=== PATIENT | female | born 1935 | race Caucasian/White ===

== ENCOUNTER 2016-12-30 12:48 | Inpatient (IN) | payer OTHER ==
--- NOTE | 2016-12-30 13:36 | EDPHY ---
H & P Stated Complaint: dyspnea increasing over 2 days, 6 wks of illness. tisha munoz in [place] Time Seen by Provider: 12/30/16 13:27 - Personal History Current Tetanus/Diphtheria Vaccine: Yes Current Tetanus Diphtheria and Acellular Pertussis (TDAP): Yes - Medical/Surgical History Hx Asthma: Yes Hx Chronic Respiratory Disease: Yes Hx Diabetes: Yes Hx Cardiac Disease: Yes Hx Renal Disease: No Hx Cirrhosis: No Hx Alcoholism: No Hx HIV/AIDS: No Hx Splenectomy or Spleen Trauma: No Other PMH: psh:cardiac x2 bypass, hysterectomy, tonsels, appyt, dental. pmh: asthma, sleep apnea, htn, pre DM, - Social History Smoking Status: Never smoked Constitutional: Initial Vital Signs Temperature (C) 36.9 C 12/30/16 13:09 Heart Rate 61 12/30/16 13:09 Respiratory Rate 16 12/30/16 13:09 Blood Pressure 122/84 H 12/30/16 13:09 O2 Sat (%) 91 L 12/30/16 13:09 O2 Delivery Mode Nasal Cannula O2 (L/minute) 1 Allergies/Adverse Reactions: lisinopril Allergy (Verified 12/28/15 11:11) Penicillins Allergy (Verified 12/28/15 11:11) Home Medications: Medication Instructions Recorded Aspirin [Aspirin 81mg (OTC)] 162 mg PO HS 12/28/15 Atorvastatin Calcium [Lipitor] 20 mg PO HS 12/28/15 Cholecalciferol Vit D3 [Vitamin D] 1,000 units PO DAILY 12/28/15 Cyanocobalamin [Vitamin B12] 1,000 mcg PO DAILY 12/28/15 Diltiazem Cd [Cardizem ER Q24hr] 120 mg PO DAILY 12/28/15 Escitalopram Oxalate [Lexapro] 20 mg PO DAILY 12/28/15 Fluticasone/Salmeter 100/50Mcg 1 puffs IH BID 12/28/15 [Advair] Furosemide [Lasix] 20 mg PO DAILY 12/28/15 Gabapentin [Neurontin] 800 mg PO HS 12/28/15 Nitroglycerin [Nitrostat 0.4 mg 0.4 mg SL Q5M PRN 12/28/15 (RX)] Ranitidine HCl [Zantac] 300 mg PO BID 06/24/16 Ranolazine [Ranexa] 500 mg PO BID 12/28/15 Medical Decision Making - Diagnostics Imaging Results: Imaging Impressions Chest X-Ray 12/30/16 13:36 Impression: 1. Findings consistent with airways disease. Basilar opacities could reflect atelectasis or pneumonia. 2. Query low-grade congestive heart failure without tenzin pulmonary edema. Imaging: I viewed and interpreted images myself ED Course/Re-evaluation: CHIEF COMPLAINT: Dyspnea HISTORY OF PRESENT ILLNESS: The patient is an 81 y/o female, arriving with her daughter at the referral of her PCP for dyspnea and hypoxemia. She has a history of history of asthma, AK, and congestive heart failure. She says she had the flu 5-6 weeks ago and mostly improved, but continued to have a productive cough. The cough has worsened over the last couple weeks and she now has associated wheezing that wakes her from sleep. Her daughter notes she has a history of an AK and CABG that previously presented with similar episodes that woke her from sleep and cause a headache. The patient does note some intermittent left-sided headaches over the past few weeks. She was scheduled for a nuclear stress test yesterday with Dr. May, but cancelled due to her cough. She saw her PCP today and they administered a duo neb to help with symptoms before sending her to the ED. The patient does not usually require home O2. No fever. REVIEW OF SYSTEMS: A 10 point review of systems was performed and is negative with the exception of the elements mentioned in the history of present illness. PHYSICAL EXAM: HR, BP, O2 Sat, RR. Temp noted General Appearance: Alert, well hydrated, appropriate, elderly, obese, and short of breath. Head: Atraumatic without scalp tenderness or obvious injury Eyes: Pupils equal, round, reactive to light and accommodation, EOMI, no trauma , no injection. Ears: Clear bilaterally, no perforation, normal landmarks Nose: Atraumatic, no rhinorrhea, clear. Throat: There is no erythema or exudates, no lesions, normal tonsils, mucus membranes moist. Neck: Supple, non-tender, no lymphadenopathy. Respiratory: No retractions, no distress, and no accessory muscle use. Prolonged expiratory phase with expiratory wheezing, coarse rhonchi and decreased breath sounds in the left base. Cardiovascular: Regular rate and rhythm, no murmurs, rubs, or gallops. Good capillary refill all extremities. Gastrointestinal: Abdomen is soft, non-tender, non-distended, no masses, no rebound, no guarding, no peritoneal signs. Musculoskeletal: Normal active ROM of all extremities, atraumatic. Pedal edema. Neurological: Alert, appropriate, and interactive. Nonfocal neuro exam Skin: No rashes, good turgor, no nodules on palpation. PAST MEDICAL HISTORY: Asthma - Advair, Proair; sleep apnea; AK PAST SURGICAL HISTORY: CABG x2 SOCIAL HISTORY: Nonsmoker. Daughter at bedside. 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 DIAGNOSTICS/PROCEDURES/CRITICAL CARE TIME: Chest x-ray: cardiomegaly, reactive airways disease, basilar infiltrate bilaterally DIFFERENTIAL DIAGNOSIS: The differential diagnosis for the patient's shortness of breath and hypoxemia included but was not limited to pneumonia, myocardial infarction, acute mountain sickness, high altitude pulmonary edema, congestive heart failure, and pulmonary embolus. MEDICAL DECISION MAKING: This is an 81 y/o female with CHF and asthma who presents with a several week history of worsening cough and dyspnea. Duo neb prior to arrival improved symptoms. She has prolonged expiratory wheezing, coarse rhonchi, and decreased breath sounds in the left base on auscultation. Her symptoms could indicate CHF and asthma exacerbation. Plan for respiratory work up. IV established. Labs drawn including CBC, CHEM, troponin, BNP, PTPTT, respiratory pathogen panel, cultures. Patient placed on personnel monitor and chest x-ray ordered. She does not meet sepsis screening criteria at this time. Symptomatic management with duo neb and O2. Chest x-ray shows reactive airways disease. Admitted to Dr. Benson for hypoxemia, CHF, and reactive airways disease. 125mg IV Solumedrol, 40mg IV Lasix administered. - Data Points Laboratory Results: Laboratory Results 12/30/16 13:32 12/30/16 13:32 12/30/16 12/30/16 12/30/16 13:32 13:32 13:32 WBC RBC Hgb Hct MCV MCH MCHC RDW Plt Count MPV Neut % (Auto) Lymph % (Auto) [facility] % (Auto) Eos % (Auto) Baso % (Auto) Nucleat RBC Rel Count Absolute Neuts (auto) Absolute Lymphs (auto) Absolute Monos (auto) Absolute Eos (auto) Absolute Basos (auto) Absolute Nucleated RBC Immature Gran % Immature Gran # PT 14.2 SEC SEC (12.0-15.0) INR 1.11 (0.83-1.16) APTT 26.7 SEC SEC (23.0-38.0) Sodium 138 mEq/L mEq/L (134-144) Potassium 4.2 mEq/L mEq/L (3.5-5.2) Chloride 103 mEq/L mEq/L (97-110) Carbon Dioxide 22 mEq/l mEq/l (22-31) Anion Gap 13 mEq/L mEq/L (8-16) BUN 16 mg/dL mg/dL (7-23) Creatinine 0.8 mg/dL mg/dL (0.6-1.0) Estimated GFR > 60 Glucose 116 mg/dL H mg/dL (70-100) Calcium 9.8 mg/dL mg/dL (8.5-10.4) Total Bilirubin Cancelled Troponin I < 0.012 ng/mL ng/mL (0-0.034) NT-Pro-B Natriuret Pep 460 pg/mL H pg/mL (0-450) Procalcitonin Pending 12/30/16 13:32 WBC 5.81 10^3/uL 10^3/uL (3.80-9.50) RBC 4.46 10^6/uL 10^6/uL (4.18-5.33) Hgb 14.8 g/dL g/dL (12.6-16.3) Hct 44.7 % % (38.0-47.0) MCV 100.2 fL H fL (81.5-99.8) MCH 33.2 pg pg (27.9-34.1) MCHC 33.1 g/dL g/dL (32.4-36.7) RDW 13.6 % % (11.5-15.2) Plt Count 147 10^3/uL L 10^3/uL (150-400) MPV 10.7 fL fL (8.7-11.7) Neut % (Auto) 56.9 % % (39.3-74.2) Lymph % (Auto) 27.0 % % (15.0-45.0) [facility] % (Auto) 10.8 % % (4.5-13.0) Eos % (Auto) 4.8 % % (0.6-7.6) Baso % (Auto) 0.3 % % (0.3-1.7) Nucleat RBC Rel Count 0.0 % % (0.0-0.2) Absolute Neuts (auto) 3.30 10^3/uL 10^3/uL (1.70-6.50) Absolute Lymphs (auto) 1.57 10^3/uL 10^3/uL (1.00-3.00) Absolute Monos (auto) 0.63 10^3/uL 10^3/uL (0.30-0.80) Absolute Eos (auto) 0.28 10^3/uL 10^3/uL (0.03-0.40) Absolute Basos (auto) 0.02 10^3/uL 10^3/uL (0.02-0.10) Absolute Nucleated RBC 0.00 10^3/uL 10^3/uL (0-0.01) Immature Gran % 0.2 % % (0.0-1.1) Immature Gran # 0.01 10^3/uL 10^3/uL (0.00-0.10) PT INR APTT Sodium Potassium Chloride Carbon Dioxide Anion Gap BUN Creatinine Estimated GFR Glucose Calcium Total Bilirubin Troponin I NT-Pro-B Natriuret Pep Procalcitonin Medications Given: Discontinued Medications Albuterol/Ipratropium (Duoneb) 3 ml IH EDNOW ONE Stop: 12/30/16 13:44 Last Admin: 12/30/16 13:44 Dose: 3 ml Departure - Departure Disposition: [facility] Inpatient Acute Clinical Impression: Hypoxemia Reactive airway disease Qualifiers: Asthma severity: mild intermittent Asthma complication type: with acute exacerbation Qualified Code(s): J45.21 - Mild intermittent asthma with (acute) exacerbation CHF (congestive heart failure) Qualifiers: Congestive heart failure type: unspecified congestive heart failure type Congestive heart failure chronicity: chronic Qualified Code(s): I50.9 - Heart failure, unspecified Condition: Fair Referrals: IZAIAH GABRIEL [Primary Care Provider] - As per Instructions Report Scribed for: Fracisco Evans Report Scribed by: Maria M Manriquez Date of Report: 12/30/16 Time of Report: 13:37
[2016-12-30] MEDS ORDERED: IPRATROPIUM/ALBUTEROL 3 ML DEYVIAL ONE (13:37)
[2016-12-30] MEDS ORDERED: IPRATROPIUM/ALBUTEROL 3 ML DEYVIAL IH ONE (13:43)
[2016-12-30 13:45] LABS: % IMMATURE GRANULYOCYTES 0.2 % (0.0-1.1); ABSOLUTE IMMATURE GRANULOCYTES 0.01 10^3/uL (0.00-0.10); ADD DIFF? NO; ADD MORPH? NO; ADD SCAN? NO; ATYPICAL LYMPHOCYTE FLAG 0 (0-99); FRAGMENT RBC FLAG 0 (0-99); HEMATOCRIT 44.7 % (38.0-47.0); HEMOGLOBIN 14.8 g/dL (12.6-16.3); LEFT SHIFT FLG 0 (0-99); LIPEMIA HEMOLYSIS FLAG 80 (0-99); MEAN CELL HEMOGLOBIN 33.2 pg (27.9-34.1); MEAN CELL HEMOGLOBIN CONCENTR. 33.1 g/dL (32.4-36.7); MEAN CELL VOLUME 100.2 fL (81.5-99.8); MEAN PLATELET VOLUME 10.7 fL (8.7-11.7); PLATELET CLUMPS FLAG 0 (0-99); PLATELET COUNT 147 10^3/uL (150-400); RED BLOOD CELL COUNT 4.46 10^6/uL (4.18-5.33); RED CELL DISTRIBUTION WIDTH 13.6 % (11.5-15.2)
[2016-12-30 13:54] LABS: INR 1.11 (0.83-1.16); PROTIME(PATIENT) 14.2 SEC (12.0-15.0)
[2016-12-30 13:55] LABS: APTT 26.7 SEC (23.0-38.0)
[2016-12-30 14:00] LABS: ANION GAP 13 mEq/L (8-16); CALCIUM 9.8 mg/dL (8.5-10.4); CARBON DIOXIDE 22 mEq/l (22-31); CHLORIDE 103 mEq/L (97-110); CREATININE 0.8 mg/dL (0.6-1.0); GLOMERULAR FILTRATION RATE > 60; GLUCOSE 116 mg/dL (70-100); POTASSIUM 4.2 mEq/L (3.5-5.2); SODIUM 138 mEq/L (134-144)
[2016-12-30 14:12] LABS: TROPONIN I < 0.012 ng/mL (0-0.034)
[2016-12-30] MEDS ORDERED: methylPREDNISolone SOD SUCC 125 MG/2 ML VIAL IVP ONE (14:57)
[2016-12-30] MEDS ORDERED: FUROSEMIDE 40 MG/4 ML VIAL IVP ONE (14:58)
[2016-12-30] MEDS ORDERED: ACETAMINOPHEN 325 MG TAB PO PRN (15:17)
[2016-12-30] MEDS ORDERED: ONDANSETRON 4 MG/2 ML VIAL IVP PRN (15:17)
[2016-12-30] MEDS ORDERED: oxyCODONE IR 5 MG TAB PO PRN (15:17)
[2016-12-30] MEDS ORDERED: ONDANSETRON DISINTEGRATING 4 MG TAB PO PRN (15:17)
[2016-12-30] MEDS ORDERED: ALBUTEROL 200 PUFFS/18 GM MDI IH PRN (15:17)
--- NOTE | 2016-12-30 15:47 | GHP ---
[f rep st] HISTORY AND PHYSICAL DATE OF ADMISSION: 12/30/2016 CHIEF COMPLAINT: Short of breath. HISTORY OF PRESENT ILLNESS: This is an 81-year-old female with a history of coronary artery disease , as well as asthma who presents with worsening shortness of breath. About 6 weeks ago, she had a lower respiratory infection treated with steroids. She got better afte r that, never fully cleared her cough. About 1 week ago, she began to feel poorly again. She compl ains of increasing sputum production, some wheezing at home, some feeling of shortness of breath. She has a history of coronary artery disease, underwent stents, as well as a bypass about 8 years ag o. At that time, her anginal equivalent was the feeling of a caban in her neck which went up to the left side of her neck. She has been experiencing these symptoms again recently. She notes that she has some worsening lower extremity edema. She has never really been told that she has CHF, though she does take furosemide daily at home. PAST MEDICAL/SURGICAL HISTORY: 1. Coronary artery disease, status post stents as well as CABG as above. 2. History of asthma. 3. Fibromyalgia. 4. SAFIA, not using CPAP. 5. Arthritis. MEDICATIONS: Please see medication reconciliation. ALLERGIES: Lisinopril and penicillin. FAMILY HISTORY: Parents are . SOCIAL HISTORY: She occasionally drinks alcohol. She has never smoked. She lives with her hodan martin. REVIEW OF SYSTEMS: 10-point review of systems is conducted and is negative except per HPI. PHYSICAL EXAM: VITAL SIGNS: Blood pressure 122/84, heart rate 61, respiration rate 16, saturating 91% on room air. Temperature 36.9. GENERAL: The patient is a very pleasant female who is lying in bed, appears mildly dyspneic not in any significant distress. HEENT: Shows her to be normocephali c, atraumatic. CARDIOVASCULAR: Exam shows a regular rate and rhythm. She has a prominent 2/6 syst olic murmur heard best at the right upper sternal border. PULMONARY: Exam shows by bilateral wheez es, worse at the bases. She is not in any significant respiratory distress. ABDOMEN: Soft, nonten mary, nondistended. SKIN: Shows no rash. : No [place]. NEUROLOGIC: Exam shows her to be alert a nd oriented x3. She is moving all extremities. PSYCHIATRIC: Exam shows normal mood and affect. LABS: CBC is normal. INR is 1. BNP is 460. Troponin is negative. Procalcitonin is pending. DATA: 1. I discussed this with Dr. Evans. Will admit. 2. Chest x-ray, which I personally viewed and interpreted, shows borderline cardiomegaly. She has sternotomy wires in place. She has evidence of mild pulmonary vascular congestion. IMPRESSION AND PLAN: 81-year-old female with worsening dyspnea/borderline hypoxia. 1. Pulmonary: Suspect that this is more primary lung mediated possibly with a component of congest dorcas heart failure. Agree with treatment she has received in the ED with steroids, as well as furose mide. I will not schedule her Lasix for now, but continue her home medications after her IV dose he re in the ED. Procalcitonin is pending, there is no infiltrate, we will hold on antibiotics at this point. 2. Possible anginal equivalent: This began prior to her respiratory symptoms. She actually had an outpatient stress test planned for tomorrow. I will hold on that given her current bronchospasm, w ill check an EKG due to troponins, monitor on telemetry. Get an echocardiogram. She does have a no table murmur that I hear on exam, which she has not been told of before. 3. History of coronary artery disease, status post stents and CABG. 4. History of asthma. 5. Code status is full. /[id number]/MODL
[2016-12-30] MEDS ORDERED: NITROGLYCERIN 0.4 MG BTL SL PRN (17:23)
[2016-12-30] MEDS: IPRATROPIUM/ALBUTEROL 3 ML DEYVIAL IH SCH ×2 (17:42→21:27)
[2016-12-30] MEDS: FLUTICASONE/SALMETER 100/50MCG DISKUS IH SCH (21:27)
[2016-12-30] MEDS: RANOLAZINE 500 MG TAB.ER PO SCH (21:37)
[2016-12-30] MEDS: GABAPENTIN 400 MG CAP PO SCH (21:37)
[2016-12-30] MEDS: ASPIRIN EC 81 MG TAB PO SCH (21:38)
[2016-12-30] MEDS: FAMOTIDINE 20 MG TAB PO SCH (21:38)
[2016-12-30] MEDS: ATORVASTATIN CALCIUM 20 MG TAB PO SCH (21:38)
--- NOTE | 2016-12-30 22:42 | CPEKG ---
Heart Rate: 68 RR Interval: 882 P-R Interval: 148 QRSD Interval: 138 QT Interval: 500 QTC Interval: 532 P [place]: 51 QRS [place]: 4 T Wave [place]: 13 EKG Severity - ABNORMAL ECG - EKG Impression: SINUS RHYTHM EKG Impression: RIGHT BUNDLE BRANCH BLOCK Electronically Signed By: Edil Murillo 01-Jan-2017 09:50:43
[2016-12-31 05:24] LABS: ANION GAP 9 mEq/L (8-16); CALCIUM 9.8 mg/dL (8.5-10.4); CARBON DIOXIDE 26 mEq/l (22-31); CHLORIDE 103 mEq/L (97-110); CREATININE 0.9 mg/dL (0.6-1.0); GLOMERULAR FILTRATION RATE 60; GLUCOSE 171 mg/dL (70-100); POTASSIUM 4.2 mEq/L (3.5-5.2); SODIUM 138 mEq/L (134-144)
[2016-12-31] MEDS: IPRATROPIUM/ALBUTEROL 3 ML DEYVIAL IH SCH ×4 (05:33→22:19)
[2016-12-31] MEDS ORDERED: FUROSEMIDE 20 MG TAB PO SCH (09:00)
[2016-12-31] MEDS: RANOLAZINE 500 MG TAB.ER PO SCH ×2 (09:37→20:27)
[2016-12-31] MEDS: CHOLECALCIFEROL VIT D3 2,000 UNITS TAB/CAP PO SCH (09:37)
[2016-12-31] MEDS: predniSONE 20 MG TAB PO SCH (09:37)
[2016-12-31] MEDS: DILTIAZEM CD 120 MG CAP PO SCH (09:38)
[2016-12-31] MEDS: DULoxetine 20 MG CAP PO SCH (09:38)
[2016-12-31] MEDS: FAMOTIDINE 20 MG TAB PO SCH ×2 (09:38→20:27)
[2016-12-31] MEDS: FLUTICASONE/SALMETER 100/50MCG DISKUS IH SCH ×3 (09:55→22:19)
--- NOTE | 2016-12-31 11:13 | ECHO ---
[id number] + + [address] : : [place] [address] : : [phone] + + Adult Echocardiographic Report + + :Name: ODELL BABIN Samantha Date: 12/30/2016 04:01 PM : : Hospital Admission Number: [id number] Location: ER: :: 1935 Gender: Female Height: 64 in : :Age: 81 yrs Race: WH Weight: 235 lb : :Reason For Study: Possible anginal equivalent : : BSA: 2. 1 meters2 : :History: CABG : + + MMode/2D Measurements \T\ Calculations Ao root diam: 3.1 cm LVLd ap4: 7.9 cm SV(MOD-sp4): 54.0 ml EDV(MOD-sp4): 89.0 ml LVLs ap4: 6.9 cm ESV(MOD-sp4): 35.0 ml EF(MOD-sp4): 60.7 % Normal Measurement Values: + + :LVIDd (3.5-5.7cm) IVSd (0.6-1.1cm) LVPWd (0.6-1.1cm) Aortic Root (2.0-3.7cm)Left Atrium (1.5-4.0cm): :LV Vol(d) (76-115ml) LV Vol(s) (29-48ml) Ejec Fraction (50-65%)PV Alexander (0.6- 1.2m/s) TV Alexander (0.4-1.0m/s) : :MV E Alexander (0.8-1.0m/s)MV A Alexander (0.3-1.0m/s)LVOT Alexander (0.7-1.2m/s) Asc Ao Alexander ( 0.9-1.8m/s) : + + Doppler Measurements \T\ Calculations MV E max alexander: Ao V2 max: AI max alexander: TR max alexander: 62.2 cm/sec 187.0 cm/sec 334.8 cm/sec 311.0 cm/sec MV A max alexander: Ao max PG: AI max P.7 mmHgTR max P.9 cm/sec 14.0 mmHg AI dec slope: 38.7 mmHg MV E/A: 0.74 818.0 cm/sec2 RAP systole: AI P1/2t: 119.9 msec10.0 mmHg RVSP(TR): 48.7 mmHg Left Ventricle The left ventricle is normal in size. There is normal left ventricular wall thickness. Left ventricular systolic function is normal. Ejection Fraction = 60-65%. There is Doppler evidence for diastolic dysfunction. Septal motion is consistent with conduction abnormality. Right Ventricle The right ventricle is normal in size and function. Atria The left atrium is mildly dilated. The right atrium is mildly dilated. The interatrial septum is intact with no evidence for an atrial septal defect. Mitral Valve The mitral valve is normal in structure and function. There is no evidence of mitral valve prolapse. There is no mitral valve stenosis. There is mild mitral regurgitation. Tricuspid Valve The tricuspid valve is not well visualized. There is moderate tricuspid regurgitation. Right ventricular systolic pressure is 49mmHg. There is Doppler evidence for mild pulmonary hypertension. Aortic Valve The aortic valve opens well. Mild Aortic Valve Calcification. There is no aortic stenosis. Mild aortic regurgitation. Pulmonic Valve The pulmonic valve is normal in structure and function. There is no pulmonic valvular regurgitation. Great Vessels The aortic root is normal size. Pericardium/Pleural There is no pericardial effusion. Conclusion A complete two-dimensional transthoracic echocardiogram was performed (2D, M-mode, Doppler and color flow Doppler). Previous echos done at [facility]. Left ventricular systolic function is normal. Ejection Fraction = 60-65%. Septal motion is consistent with conduction abnormality. There are no ischemic wall motion abnormalities. The left atrium is mildly dilated. The right atrium is mildly dilated. Mild aortic sclerosis. There is mild mitral regurgitation. There is moderate tricuspid regurgitation. Right ventricular systolic pressure is 49mmHg. There is Doppler evidence for mild pulmonary hypertension. Mild aortic regurgitation. There is Doppler evidence for diastolic dysfunction. Final Reading Physician: Renetta Fajardo signed on 12/31/2016 11:12 AM Ordering Physician: Mono Benson Performed By: Radha Springer RDCS
--- NOTE | 2016-12-31 14:58 | HOSPPROG ---
Hospitalist Progress Note Assessment/Plan: #Pulmonary HTN, Cor Pulmonale #Asthma Exacerbation #Viral Pneumonia vs viral bronchitis #Weakness and Deconditioning Studies: -TTE: LVEF 60-65%, RVSP 49 mmHg, pulm HTN -Human Rhinovirus -Procalcitonin: unremarkable Plan: First encounter with this patient. Feels better. Still hypoxic. Improving. Continue Diuretics and Steroids. No need for abx. PT/OT Keep overnight, will change to inpatient Dispo: pending further clinical improvement. Subjective: Feeling better. Still hypoxic. No CP. Some leg swelling. Objective: Vital Signs Temp Pulse Resp BP Pulse Ox 36.6 C 78 15 121/67 H 96 12/31/16 11:42 12/31/16 11:42 12/31/16 11:42 12/31/16 11:42 12/31/16 11:42 Microbiology 12/30/16 18:10 Respiratory Panel (PCR) - Final Nasal, Sinus - Swab Human Rhinovirus/Enterovirus Laboratory Results 12/31/16 03:56 12/30/16 12/31/16 01/01/17 05:59 05:59 05:59 Intake Total 340 360 Output Total 200 Balance 140 360 PT 14.2 SEC (12.0-15.0) 12/30/16 13:32 INR 1.11 (0.83-1.16) 12/30/16 13:32 - Physical Exam Constitutional: no apparent distress, appears nourished Eyes: PERRL, EOMI Ears, Nose, Mouth, Throat: moist mucous membranes, hearing normal Cardiovascular: regular rate and rhythym, edema, No JVD Respiratory: no respiratory distress, reduced air movement, rhonchi Gastrointestinal: normoactive bowel sounds, soft, non-tender abdomen, no palpable masses Skin: warm, normal color Neurologic: AAOx3 Psychiatric: interacting appropriately, not anxious, not encephalopathic ICD10 Worksheet Patient Problems: Problems Problem Status Onset CHF (congestive heart failure) Acute Hypoxemia Acute Reactive airway disease Acute
--- NOTE | 2016-12-31 17:36 | GCON ---
[f rep st] CONSULTATION CARDIOLOGY CONSULTATION INDICATION FOR CARDIOLOGY CONSULTATION: Shortness of breath, known history of coronary artery disease. HISTORY OF PRESENT ILLNESS: The patient is an 81-year-old female, whose primary customer advisor is Dr. Cosme May at [facility]. She has significant past history of coronary artery disease, with CABG in 2007, hypertension, hyperlipidemia, SAFIA, not using CPAP, and asthma. The patient reporting previous history of influenza earlier this year. She reports she has been having ongoing cough since diagnosis. About 6 weeks ago she did see her PCP, in which he had prescribed her to undergo steroid therapy. She reports she had improvement for about a week, but continued to have ongoing cough, she reports the cough had been continuing despite steroid use. Over the last week she has been feeling more fatigue and shortness of breath, deciding to come to the hospital for further evaluation. Patient also reporting ongoing left neck and head pressure, similar symptoms to what she had prior to her CABG in 2007. She reported having similar symptoms in December of last year. At that point, Dr. Borja did take her to the cardiac catheterization lab, in which she was noted to have a 95% obstruction of the left main, a 50% obstruction in her PDA, noted to have a patent SEPULVEDA to the LAD and a patent SVG to her OM. She has normal LV systolic function and it was decided no flow-limiting disease (with the patent grafts). No PCI was performed at that time. She reports since then these symptoms have been going on, but she feels with this upper respiratory infection the symptoms have become worse and more often. She says the head and neck pain come on with exertion, and sometimes are associated with shortness of breath, usually lasting for less than 3-5 minutes. She is reporting having these at least 1-2 times a week. She reports over the last 4 months she has used sublingual nitroglycerin for symptoms, which she reports usually subsides it, a total of 4 times. She had seen Dr. May's PA a week ago , Jer[place], and she was scheduled to undergo Humera MPI study tomorrow. Once arrived to the hospital she did undergo electrocardiogram, showing sinus rhythm with right bundle branch block, in comparison to electrocardiogram done on December 28, 2015, prior to her heart catheterization, with no significant change. She has had troponin levels done x3, which have all be negative, less than 0.012. She was given 1 dose of IV Lasix with a noted elevated BNP of 460, which she reports mild improvement in her shortness of breath. She has been undergoing significant pulmonary toilet with albuterol inhalers and nebulizers with improvement in symptoms. She reports no chest pain or pressure since hospitalization. She has had blood cultures x2 drawn, which results are still pending. She did come up positive from a nasal swab of rhinovirus. On continuous cardiac monitoring, she has remained in sinus rhythm with no significant ectopy or arrhythmia or pauses noted. She reports overall since her hospital admission her symptoms have significantly improved. PAST MEDICAL HISTORY: 1. Coronary artery disease. 2. History of asthma. 3. History of fibromyalgia. 4. Obstructive sleep apnea. 5. Arthritis. 6. Hyperlipidemia. 7. Hypertension. PAST SURGICAL HISTORY: CABG done in 2007 in [place]. Coronary angiogram done December of 2015. FAMILY HISTORY: Noncontributory. SOCIAL HISTORY: She is , she has 2 adult children who are alive and well. She currently lives with her daughter in [place]. She moved from [place] to [place] 1 year ago in August. She occasionally drinks alcohol , reports she has never smoked. ALLERGIES: Lisinopril and penicillin. HOME MEDICATIONS: 1. Ranexa 1000 mg p.o. b.i.d. 2. Zantac 300 mg p.o. b.i.d. 3. Nitrostat 0.4 mg sublingual p.r.n. chest pressure. 4. Gabapentin 800 mg p.o. h.s. 5. Lasix 20 mg p.o. daily. 6. Advair 100/50, one puff b.i.d. 7. Diltiazem 120 mg p.o. daily. 8. Cymbalta 20 mg p.o. daily. 9. Vitamin B12 1000 mcg p.o. daily. 10. Vitamin D3 5000 units p.o. daily. 11. Atorvastatin 20 mg p.o. h.s. 12. Aspirin 81 mg p.o. daily. REVIEW OF SYSTEMS: A 10-point review of systems done on this patient all negative except as mentioned above. PHYSICAL EXAMINATION: GENERAL APPEARANCE: Short-statured, well-groomed, moderately obese, female. She is alert and oriented to person, place , time, situation. Appears to be under no acute distress at this time. CURRENT VITAL SIGNS: Blood pressure 121/67, heart rate 78, sinus rhythm on the monitor, respirations 15, saturating 96% on 3 L nasal cannula. Temperature 36.6 degrees Celsius. HEENT: Head is normocephalic. Lips and tongue are pink and moist with no signs of cyanosis. Conjunctivae negative. NECK: Trachea is midline, +2 carotid pulses bilateral, no auscultated bruits, no jugular vein distention noted at 45-degree angle, but positive hepatojugular reflux. LUNGS: Expiratory wheezes, but no rhonchi, rales noted, no accessory muscle use, no intercostal muscle retraction noted. CARDIAC: Regular rate, regular rhythm, plus 2/6 systolic murmur noted on left and right upper sternum. No S3, gallops , or rubs noted. ABDOMEN: Soft, obese, nontender to palpation, no organomegaly. Bowel sounds x4 quadrants. SKIN: [place], warm, dry. No cyanosis , no clubbing. +1 peripheral edema, bilateral lower extremities. VASCULAR: + 2 carotids bilateral, +2 radials bilateral, +1 dorsal pedal and posterior tibial pulses bilateral. LABORATORY STUDIES: On admission, WBC was 5.81, hemoglobin of 14.8, hematocrit of 44.7, platelet count 147. INR 1.11. Troponin less than 0.012. ProBNP 460. Prolactin 0.04. Blood cultures currently pending. Nasal swab positive for human rhinovirus/enterovirus. Laboratories today show sodium 138, potassium 4.2 , chloride 103, CO2 26, BUN 18, creatinine 0.9, glucose 171, calcium 9.8. The patient has had 2 other troponin levels drawn from admission, which have both been less than 0.012. STUDIES: Electrocardiogram as mentioned above. Chest x-ray on admission showing consistent with airway disease, basilar opacity could reflect atelectasis or pneumonia, possible low-grade congestive heart failure without tenzin pulmonary edema. Echocardiogram done yesterday showing LV systolic function normal, EF 60% to 65% , septal motion consistent with conduction abnormality, no ischemic wall motion abnormalities, LA mildly dilated, RA mildly dilated, mild aortic sclerosis, mild MR, moderate TR, RVSP 49 mmHg, mild AI, diastolic dysfunction. ASSESSMENT AND PLAN: 1. Upper respiratory infection: Positive for rhinovirus. She has been started on nebulizer treatments and inhalers by Hospital Medicine. Blood cultures are still pending. No antibiotic therapy yet. She has been started on prednisone. 2. Coronary artery disease/chest pain: Patient with known history of coronary artery disease with previous coronary artery bypass graft. Most recent angiogram was done in December [address] Borja, it showed tight left main, 50% posterior descending artery lesion, but patent left internal mammary artery to the left anterior descending and saphenous vein graft to obtuse marginal, supplying the left circulatory system past the left main stenosis. No flow- limiting disease needing percutaneous coronary intervention at that time. Her troponins have been negative x3. I have reviewed her echocardiogram with Dr. Jimenez, and I have received her previous echocardiogram from [facility] (2016), showing no significant changes. At this time, we will continue on her current home medication of aspirin and Ranexa. Due to her to reactive airway disease we will hold off on starting her on beta blockers. Continue on diltiazem. Since she has had no significant wall motion changes, her echocardiogram and all her troponin levels have been negative, I do not think we will have her undergo Lexiscan MPI study at this time until her respiratory situation has been more resolved (Lexiscan could potentially make her reactive airway disease worst), potentially consider doing as an outpatient on a later date. 3. Hyperlipidemia. She has been resumed on her atorvastatin, continue on current home dosage. 4. Elevated BNP: Patient had a very mildly elevated BNP. She does not appear to be in any significant heart failure, she has no jugular venous distention, but does have positive hepatic reflux and mild peripheral edema. At this time, I will increase her home dosage of Lasix from 20 mg to 40 mg q. day. We will monitor laboratory studies to make sure no increase in renal function. Thank you for this consultation. We will be glad to follow along with you. /[id number]/MODL MTDD
[2016-12-31] MEDS: ATORVASTATIN CALCIUM 20 MG TAB PO SCH (20:27)
[2016-12-31] MEDS: ASPIRIN EC 81 MG TAB PO SCH (20:27)
[2016-12-31] MEDS: GABAPENTIN 400 MG CAP PO SCH (20:28)
[2017-01-01 05:26] LABS: ANION GAP 10 mEq/L (8-16); CALCIUM 10.1 mg/dL (8.5-10.4); CARBON DIOXIDE 27 mEq/l (22-31); CHLORIDE 101 mEq/L (97-110); CREATININE 1.1 mg/dL (0.6-1.0); GLOMERULAR FILTRATION RATE 47; GLUCOSE 160 mg/dL (70-100); POTASSIUM 4.6 mEq/L (3.5-5.2); SODIUM 138 mEq/L (134-144)
[2017-01-01] MEDS: IPRATROPIUM/ALBUTEROL 3 ML DEYVIAL IH SCH ×4 (06:33→21:06)
[2017-01-01] MEDS: FLUTICASONE/SALMETER 100/50MCG DISKUS IH SCH ×2 (06:36→21:06)
[2017-01-01] MEDS: RANOLAZINE 500 MG TAB.ER PO SCH ×2 (08:09→20:34)
[2017-01-01] MEDS: CHOLECALCIFEROL VIT D3 2,000 UNITS TAB/CAP PO SCH (08:09)
[2017-01-01] MEDS: DILTIAZEM CD 120 MG CAP PO SCH (08:10)
[2017-01-01] MEDS: DULoxetine 20 MG CAP PO SCH (08:10)
[2017-01-01] MEDS: FAMOTIDINE 20 MG TAB PO SCH (08:10)
[2017-01-01] MEDS: predniSONE 20 MG TAB PO SCH (08:10)
[2017-01-01] MEDS ORDERED: FUROSEMIDE 40 MG TAB PO SCH (09:00)
--- NOTE | 2017-01-01 13:40 | PDCARPN ---
Cardiology Progress Note Chief Complaint: Patient reports continue her shortness of breath, but has improved. Reports significant MIX. Assessment/Plan: Assessment: 81-year-old female with significant past history that includes CABG in 2007, hypertension, hyperlipidemia SAFIA, and asthma. Admitted on December 30 for increased shortness of breath. Reporting episodes of left-sided neck and head pain, similar to her angina equivalent symptoms prior to CABG. Has been going on for greater than a year, worsening with upper respiratory infection. Most recent catheterization was (12/2015) noting a 95% obstruction in left main, but SVG to OM and SEPULVEDA to LAD patent past the stenosis. 50% obstruction it and PDA. Echocardiogram (12/30/2016) showing LV systolic function with EF of 60 65% , septal motion consistent with conduction abnormality. No ischemia wall motion abnormalities, LA mildly dilated, RA mildly dilated, mild aortic sclerosis, mild MR, moderate TR, RVSP 49 mm Hg, mild MD, diastolic dysfunction. In comparison to echocardiogram done at [facility] [place] [place] 12/2015, no significant change. Electrocardiogram is unchanged from EKG done 12/2015. Negative troponins x3. BNP 406. Positive human rhinovirus. Today she reports no chest pressure or pain. Reports improvement in shortness of breath. Continues to be hypoxic and requiring oxygen. Continues cardiac monitoring showing sinus rhythm, with no malignant arrhythmias or pauses. 1. CAD: Patient reporting no episodes of chest pain or pressure. Since hospitalization has had no further episodes of left neck or head pain. Negative troponins x3, no wall motion abnormality on LV-gram. Cardiac catheterization done 1 year ago, with no flow limiting disease requiring PCI. Had been scheduled for MPI study at [facility] tomorrow, have recommended that hold off of Humera MPI at this time, until recovered from a upper respiratory infection. Can be pursued as an outpatient. Continue aspirin therapy. Hold off beta-blockers due to history of asthma. Continue on Ranexa. 2. Hyperlipidemia: Patient currently on atorvastatin. 3. A Viral pneumonia versus viral bronchitis: Started on inhalers a nebulized treatments. Started steroids. Continues to be on oxygen therapy. Being followed by hospital services. 4. Diastolic dysfunction: Mild peripheral edema, mild elevated BNP, mildly elevated pulmonary pressures at 49 mm of mercury. Increased patient's daily Lasix dose to 40 mg q.day. Repeat BMP in a.m.. 01/01/17 13:30 Subjective: Patient reports no chest pressure or pain, palpitations, lightheadedness, near- syncope or syncopal. Reviewed/Discussed With: family, other (Dr Jimenez) Objective: Vital Signs (8 Hrs) Temp Pulse Resp BP Pulse Ox 01/01/17 11:40 36.5 C 63 19 110/73 92 01/01/17 10:50 56 L 16 120/71 99 01/01/17 07:57 36.4 C 73 18 120/71 97 Intake/Output (24 Hrs) 12/31/16 01/01/17 01/02/17 05:59 05:59 05:59 Intake Total 300 Balance 300 Intake: Oral (ml) 300 Other: Intake Quantity Yes Sufficient Number of Voids Toilet 2 Result Diagrams: 12/30/16 13:32 01/01/17 04:03 - Physical Exam Constitutional: no apparent distress, obese Ears, Nose, Mouth, Throat: moist mucous membranes Cardiovascular: regular rate and rhythm, no murmurs, systolic murmur (1-2/6 systolic murmur noted left sternal border.), pulses symmetric bilat, No jugular vein distention, No carotid bruit Peripheral Pulses: 1+: dorsalis-pedis (R), dorsalis-pedis (L), 2+: carotid (R), carotid (L) Respiratory: other (Expiratory wheezes noted, no rhonchi or rales. Diminished in bases) Gastrointestinal: normoactive bowel sounds Skin: warm, No no edema (Trace to +1 peripheral edema bilateral lower extremities to knees.) Neurologic: AAOx3 Psychiatric: cooperative, interactive, following commands ICD10 Worksheet Patient Problems: Problems Problem Status Onset Hypoxemia Acute Reactive airway disease Acute CHF (congestive heart failure) Acute
--- NOTE | 2017-01-01 13:51 | HOSPPROG ---
Hospitalist Progress Note Assessment/Plan: #Pulmonary HTN, Cor Pulmonale #Asthma Exacerbation #Viral Pneumonia vs viral bronchitis #Weakness and Deconditioning #SHERINE, elevated BUN Studies: -TTE: LVEF 60-65%, RVSP 49 mmHg, pulm HTN -Human Rhinovirus -Procalcitonin: unremarkable Plan: Feels better from a swelling and breathing perspective Unfortunately BUN and Cr have risen. She has already received Lasix. Will monitor overnight and ensure no further worsening. If Ok, would restart Lasix at 20mg daily which is her home dose. PT/OT Subjective: No cough. Still on supplemental O2. Feels better. Cr elevated Objective: Vital Signs Temp Pulse Resp BP Pulse Ox 36.5 C 63 19 110/73 92 01/01/17 11:40 01/01/17 11:40 01/01/17 11:40 01/01/17 11:40 01/01/17 11:40 Laboratory Results 01/01/17 04:03 12/31/16 01/01/17 01/02/17 05:59 05:59 05:59 Intake Total 300 Balance 300 PT 14.2 SEC (12.0-15.0) 12/30/16 13:32 INR 1.11 (0.83-1.16) 12/30/16 13:32 - Physical Exam Constitutional: no apparent distress, appears nourished, not in pain Eyes: PERRL, EOMI Ears, Nose, Mouth, Throat: moist mucous membranes Cardiovascular: regular rate and rhythym, No JVD Respiratory: reduced air movement Gastrointestinal: normoactive bowel sounds, soft, non-tender abdomen, no palpable masses Skin: warm Neurologic: AAOx3 Psychiatric: interacting appropriately, not anxious, not encephalopathic ICD10 Worksheet Patient Problems: Problems Problem Status Onset CHF (congestive heart failure) Acute Hypoxemia Acute Reactive airway disease Acute
[2017-01-01] MEDS ORDERED: ENOXAPARIN 40 MG/0.4 ML SYR SC SCH (16:30)
[2017-01-01] MEDS: ENOXAPARIN 40 MG/0.4 ML SYR SC SCH (17:53)
[2017-01-01] MEDS: GABAPENTIN 400 MG CAP PO SCH (20:34)
[2017-01-01] MEDS: ASPIRIN EC 81 MG TAB PO SCH (20:34)
[2017-01-01] MEDS: ATORVASTATIN CALCIUM 20 MG TAB PO SCH (20:34)
[2017-01-02 04:55] LABS: ANION GAP 7 mEq/L (8-16); CALCIUM 9.8 mg/dL (8.5-10.4); CARBON DIOXIDE 27 mEq/l (22-31); CHLORIDE 102 mEq/L (97-110); GLOMERULAR FILTRATION RATE 53; GLUCOSE 132 mg/dL (70-100); POTASSIUM 4.4 mEq/L (3.5-5.2); SODIUM 136 mEq/L (134-144)
[2017-01-02] MEDS: IPRATROPIUM/ALBUTEROL 3 ML DEYVIAL IH SCH ×4 (05:51→21:02)
[2017-01-02] MEDS: ENOXAPARIN 40 MG/0.4 ML SYR SC SCH ×2 (08:52→20:24)
[2017-01-02] MEDS: FAMOTIDINE 20 MG TAB PO SCH (08:53)
[2017-01-02] MEDS: predniSONE 20 MG TAB PO SCH (08:53)
[2017-01-02] MEDS: CHOLECALCIFEROL VIT D3 2,000 UNITS TAB/CAP PO SCH (08:53)
[2017-01-02] MEDS: RANOLAZINE 500 MG TAB.ER PO SCH ×2 (08:55→20:24)
[2017-01-02] MEDS: DILTIAZEM CD 120 MG CAP PO SCH (08:56)
[2017-01-02] MEDS: DULoxetine 20 MG CAP PO SCH (08:56)
--- NOTE | 2017-01-02 09:55 | PDCARPN ---
Cardiology Progress Note Chief Complaint: L sided neck/head pain/hypoxia Assessment/Plan: Assessment: 81F PMH CAD PCIs remotely/CABG 2007, htn, dyslipidemia, SAFIA, asthma, admitted from ED. Found to be hypoxic in PCP's office. Also reported L neck/head pain which has been her previous anginal equivalent. ECG personally interpreted shows SR with RBBB. Pt new to me. Chart notes, labs, telemetry, imaging reviewed. #. CAD: LHC from 02/18 shows 95% LM obstruction, patent SEPULVEDA to LAD and SVG to OM / has 50% ostial RCA and 50% mPDA trops negative x 3 no ischemic changes on ECG and echo with normal EF and no RWMA continue ASA/statin BB avoided with known lung disease #. respiratory infection with hypoxia: continue supportive therapies per medicine #. VHD: mod TR, mild MR, mild aortic sclerosis may be followed by Dr. May's office #. PHTN: RVSP 49 likely related to asthma pt should consider using CPAP #. htn: bp appears adequately controlled #. DCHF: given mild Cr elevation/SHERINE would recommend she just stay on her home Lasix dosing #. hyperglycemia: likely related to use of steroids/ can be followed as outpatient Plan: Cardiology will sign off. Pt may follow up next week with her outpatient cardiology provider, Dr. May. 01/02/17 10:11 Subjective: Ongoing cough, weakness, wheezing. Edema is at b/l. No neck or head pain currently. Reviewed/Discussed With: hospitalist (Dr. Chen) Objective: Vital Signs (8 Hrs) Temp Pulse Resp BP Pulse Ox 01/02/17 08:00 97.8 F 78 16 112/69 96 01/02/17 05:51 64 14 99 01/02/17 04:47 97.9 F 63 16 123/62 H 94 Intake/Output (24 Hrs) 01/01/17 01/02/17 01/03/17 05:59 05:59 05:59 Intake Total 300 1300 Output Total 800 Balance 300 500 Intake: Oral (ml) 300 1300 Output: Urine (ml) 800 Toilet 800 Other: Weight 106.7 kg Intake Quantity Yes Yes Sufficient Number of Voids Toilet 2 Result Diagrams: 12/30/16 13:32 01/02/17 03:57 EKG: SR with RBBB Telemetry: SR Echocardiogram: From 12/30/16: EF 60-65%, LA mild dil, RA mild dil, mild Ao sclerosis, mild MR, mod TR, RVSP 49. - Physical Exam Constitutional: no apparent distress Eyes: PERRL, anicteric sclera Ears, Nose, Mouth, Throat: moist mucous membranes Cardiovascular: regular rate and rhythm, systolic murmur Respiratory: clear to auscultate bilat, reduced air movement, expiratory wheeze , No inspiratory crackles Skin: no rashes, no abrasions, warm Neurologic: AAOx3 Psychiatric: cooperative, interactive ICD10 Worksheet Patient Problems: Problems Problem Status Onset Hypoxemia Acute Reactive airway disease Acute CHF (congestive heart failure) Acute
[2017-01-02] MEDS: FLUTICASONE/SALMETER 100/50MCG DISKUS IH SCH ×2 (10:32→21:03)
--- NOTE | 2017-01-02 15:58 | HOSPPROG ---
Hospitalist Progress Note Assessment/Plan: DIAGNOSES: # acute hypoxemic respiratory failure #Asthma Exacerbation # acute viral respiratory infection with rhinovirus confirmed #Pulmonary HTN, Cor Pulmonale with moderate tricuspid regurgitation which probably accounts for her murmur #? of angina equivalent with known hx of CAD all the rest all paste 1st the select past: pt had outpt sxs of neck discomfort mimicing her previous angina; a lexiscan stress had been arranged as outpt but this has been cancelled for the moment due to her asthma exacerbation; has ruled out for VT #Weakness and Deconditioning #SHERINE, elevated BUN Little progress in fact she feels a bit more short of breath today than yesterday. PLANS: -continue bronchodilators and steroid -lasix held due to rising BUN -eventual lexiscan stress either as inpt or later as outpt SUBJECTIVE: more sob today still w a lot of cough, dry no fever no angina like sxs OBJECTIVE Vitals reviewed: stable Welding Supervisor, my review: NSR Exam: alert oriented skin warm dry color ok resps mildly labored lungs diffuse exp wheeze heart regular abd soft nondistended nontender, bowel sounds present limbs warm, no edema iv site ok Studies: -TTE: LVEF 60-65%, RVSP 49 mmHg, pulm HTN, moderate tricuspid regurg -Human Rhinovirus seen on resp pathogen panel -Procalcitonin: unremarkable Objective: Vital Signs Temp Pulse Resp BP Pulse Ox 36.7 C 75 18 117/72 88 L 01/02/17 12:00 01/02/17 12:00 01/02/17 12:00 01/02/17 12:00 01/02/17 14:57 Laboratory Results 01/02/17 03:57 01/01/17 01/02/17 01/03/17 06:59 06:59 06:59 Intake Total 300 1300 Output Total 800 Balance 300 500 PT 14.2 SEC (12.0-15.0) 12/30/16 13:32 INR 1.11 (0.83-1.16) 12/30/16 13:32 ICD10 Worksheet Patient Problems: Problems Problem Status Onset CHF (congestive heart failure) Acute Hypoxemia Acute Reactive airway disease Acute
[2017-01-02] MEDS: ATORVASTATIN CALCIUM 20 MG TAB PO SCH (20:23)
[2017-01-02] MEDS: ASPIRIN EC 81 MG TAB PO SCH (20:23)
[2017-01-02] MEDS: GABAPENTIN 400 MG CAP PO SCH (20:23)
[2017-01-03] MEDS: IPRATROPIUM/ALBUTEROL 3 ML DEYVIAL IH SCH ×4 (05:48→20:23)
[2017-01-03] MEDS: RANOLAZINE 500 MG TAB.ER PO SCH ×2 (09:23→21:25)
[2017-01-03] MEDS: CHOLECALCIFEROL VIT D3 2,000 UNITS TAB/CAP PO SCH (09:23)
[2017-01-03] MEDS: predniSONE 20 MG TAB PO SCH (09:24)
[2017-01-03] MEDS: DILTIAZEM CD 120 MG CAP PO SCH (09:24)
[2017-01-03] MEDS: FAMOTIDINE 20 MG TAB PO SCH (09:24)
[2017-01-03] MEDS: DULoxetine 20 MG CAP PO SCH (09:24)
[2017-01-03] MEDS: ENOXAPARIN 40 MG/0.4 ML SYR SC SCH ×2 (09:25→21:22)
[2017-01-03] MEDS: FLUTICASONE/SALMETER 100/50MCG DISKUS IH SCH ×2 (09:42→20:24)
--- NOTE | 2017-01-03 18:09 | HOSPPROG ---
Hospitalist Progress Note Assessment/Plan: # acute hypoxemic respiratory failure with an asthma exacerbation/rhinovirus infection -continue bronchodilators and steroids #Pulmonary HTN, Cor Pulmonale with moderate tricuspid regurgitation #? of angina equivalent with known hx of CAD -appreciate cardiology assistance, discussed care plan with Dr May -a fabiola stress had been arranged but this has been cancelled for the moment due to her asthma exacerbation -has ruled out for NE -TTE: LVEF 60-65%, RVSP 49 mmHg, pulm HTN #Weakness and Deconditioning -PT/OT #SHERINE, elevated BUN -restart lasix DISPO- likely discharge in AM if labs stable and continues to symptomatically improve Subjective: Says feels much better today, more energy. Objective: Vital Signs Temp Pulse Resp BP Pulse Ox 97.7 F 56 L 20 123/67 H 98 01/03/17 16:00 01/03/17 16:54 01/03/17 16:54 01/03/17 16:00 01/03/17 16:54 Laboratory Results 01/02/17 03:57 01/02/17 01/03/17 01/04/17 11:59 11:59 11:59 Intake Total 1300 300 Output Total 800 400 600 Balance 500 -100 -600 PT 14.2 SEC (12.0-15.0) 12/30/16 13:32 INR 1.11 (0.83-1.16) 12/30/16 13:32 - Time Spent With Patient Time Spent with Patient: greater than 35 minutes Time Spent with Patient: Greater than 35 minutes spent on this patients care, greater than 50% of time spent counseling, educating, and coordinating care regarding the above mentioned plan. - Pending Discharge Pending Discharge Within 24 Hours: Yes Pending Discharge Date: 03/12/17 Pending Discharge Time: 11:00 - Physical Exam Constitutional: no apparent distress, appears nourished, not in pain, obese Eyes: PERRL, anicteric sclera, EOMI Ears, Nose, Mouth, Throat: moist mucous membranes, hearing normal, ears appear normal, no oral mucosal ulcers Cardiovascular: regular rate and rhythym, no murmur, rub, or gallop, No edema Respiratory: no respiratory distress, expiratory wheeze, other (rare cough) Gastrointestinal: normoactive bowel sounds, soft, non-tender abdomen, no palpable masses Skin: warm, normal color Psychiatric: interacting appropriately, not anxious, not encephalopathic, thought process linear ICD10 Worksheet Patient Problems: Problems Problem Status Onset CHF (congestive heart failure) Acute Hypoxemia Acute Reactive airway disease Acute
[2017-01-03] MEDS: ASPIRIN EC 81 MG TAB PO SCH (21:22)
[2017-01-03] MEDS: ATORVASTATIN CALCIUM 20 MG TAB PO SCH (21:23)
[2017-01-03] MEDS: GABAPENTIN 400 MG CAP PO SCH (21:24)
[2017-01-04 03:41] VITALS: BP 112/73; RESP 16; TEMP 98.4
[2017-01-04 04:38] LABS: MEAN CELL HEMOGLOBIN 33.3 pg (27.9-34.1); MEAN CELL HEMOGLOBIN CONCENTR. 32.5 g/dL (32.4-36.7); MEAN CELL VOLUME 102.6 fL (81.5-99.8); RED BLOOD CELL COUNT 3.9 10^6/uL (4.18-5.33); RED CELL DISTRIBUTION WIDTH 13.6 % (11.5-15.2)
[2017-01-04 04:51] LABS: ANION GAP 8 mEq/L (8-16); CALCIUM 9.8 mg/dL (8.5-10.4); CARBON DIOXIDE 29 mEq/l (22-31); CHLORIDE 105 mEq/L (97-110); CREATININE 0.9 mg/dL (0.6-1.0); GLOMERULAR FILTRATION RATE 60; GLUCOSE 151 mg/dL (70-100); POTASSIUM 4.6 mEq/L (3.5-5.2); SODIUM 142 mEq/L (134-144)
[2017-01-04] MEDS: IPRATROPIUM/ALBUTEROL 3 ML DEYVIAL IH SCH ×2 (06:14→12:05)
[2017-01-04] MEDS: RANOLAZINE 500 MG TAB.ER PO SCH (09:08)
[2017-01-04] MEDS: CHOLECALCIFEROL VIT D3 2,000 UNITS TAB/CAP PO SCH (09:08)
[2017-01-04] MEDS: FAMOTIDINE 20 MG TAB PO SCH (09:09)
[2017-01-04] MEDS: DULoxetine 20 MG CAP PO SCH (09:09)
[2017-01-04] MEDS: DILTIAZEM CD 120 MG CAP PO SCH (09:09)
[2017-01-04] MEDS: predniSONE 20 MG TAB PO SCH (09:09)
[2017-01-04] MEDS: ENOXAPARIN 40 MG/0.4 ML SYR SC SCH (09:10)
[2017-01-04] MEDS: FLUTICASONE/SALMETER 100/50MCG DISKUS IH SCH (09:22)
[2017-01-04 09:28] VITALS: PULSE 78
--- NOTE | 2017-01-04 10:44 | PDIAF ---
- Diagnosis Code Status: Limited Resuscitation - Medication Management Discharge Medications: Medications to Continue on Transfer Aspirin EC [Aspirin EC 81 mg (*)] 81 mg PO HS 12/30/16 [Last Taken 12/29/16] Atorvastatin Calcium [Lipitor 20 mg (*)] 20 mg PO HS 12/30/16 [Last Taken ] Cholecalciferol Vit D3 [Vitamin D3 (*)] 5,000 units PO DAILY 12/30/16 [Last Taken 12/30/16] Cyanocobalamin [Vitamin B12 (*)] 1,000 mcg PO DAILY 12/30/16 [Last Taken ] DULoxetine [Cymbalta] 20 mg PO DAILY 12/30/16 [Last Taken 12/30/16] Diltiazem Cd [Cardizem ER 120 MG (*)] 120 mg PO DAILY 12/30/16 [Last Taken 12/30] Fluticasone/Salmeter 100/50Mcg [Advair 100/50 (*)] 1 puffs IH BID 12/30/16 [ Last Taken 12/30/16 1 PUFF] Furosemide [Lasix 20 MG (*)] 20 mg PO DAILY 12/30/16 [Last Taken 12/30/16] Gabapentin [Neurontin 400 MG (*)] 800 mg PO HS 12/30/16 [Last Taken 12/29/16] Nitroglycerin [Nitrostat 0.4 mg (*)] 0.4 mg SL AD PRN 12/30/16 [Last Taken Unknown] Ranitidine HCl 300 mg PO BID 12/30/16 [Last Taken Unknown] Ranolazine [Ranexa] 1,000 mg PO BID 12/30/16 [Last Taken 12/30/16 1 TAB] Albuterol [Ventolin Hfa Inhaler] 2 puffs IH Q4HRS PRN #0 mdi 01/04/17 [Last Taken Unknown] predniSONE 40 mg PO DAILY #0 tablet 01/04/17 [Last Taken Unknown] Coil Binder Antibiotics: n/a Discharge Medications: Refer to the Discharge Home Medication list for PRN reason. PICC Care - Routine: N/A - Orders Services needed: Physical Therapy, Occupational Therapy Home Care Face to Face: Orquidea Nj MD 01/04/2017 Oxygen: 2L continuous Diet Recommendation: no restrictions on diet Diet Texture: Regular Texture Diet Tube feeding: n/a [place]: Not applicable - Follow Up Care Current Providers and Referrals: IZAIAH GABRIEL [Primary Care Provider] - As per Instructions Cosme May MD [Medical Doctor] - follow up in 1 week (Please call Dr. Castillo office, once discharge, they will make an appointment for you to be seen in the next week to 10 days. They are expecting your called)
[2017-01-04 10:51] VITALS: O2SAT 86
--- NOTE | 2017-03-25 11:22 | GDS ---
[f rep st] DISCHARGE SUMMARY SERVICE: [facility] CONSULTS: Cardiology. PROCEDURES: Echocardiogram, chest x-ray. H AND P: Please see previously dictated note by Dr. Benson. ADMISSION DIAGNOSES: 1. Acute respiratory distress. 2. Possible angina equivalent. 3. History of coronary artery disease, status post coronary artery bypass grafting and stents. 4. History of asthma. DISCHARGE DIAGNOSES: 1. Acute hypoxic respiratory failure with borderline hypoxia 2. Possible angina equivalent. 3. History of coronary artery disease, status post coronary artery bypass grafting and stents. 4. History of asthma. HOSPITAL COURSE: 1. Acute hypoxic respiratory failure with borderline hypoxia. The patient was admitted to the floor for evaluation and management of acute hypoxic respiratory failure. She was treated with bronchodilators and steroids. She had a respiratory panel that showed rhinovirus/enterovirus. Over the course of her stay, her symptoms gradually improved. Chest x-ray was done on the day of admission, and showed findings consistent with airway disease, possible atelectasis versus early pneumonia. She was also observed on telemetry because of her cardiovascular history and had an echocardiogram done for completeness which showed an ejection fraction of 60% to 65%. Cardiology was consulted and did not have any further recommendations at that time, other than treating her pulmonary issues. She was discharged home with home health care and home oxygen. Of note, she does have a history of sleep apnea but is not currently compliant with CPAP and I have recommended that she see Sleep Medicine to discuss other options or change in her CPAP. DISCHARGE MEDICATIONS: She should continue all of her home medications in addition to oral prednisone at 40 mg daily to be reviewed by her primary care provider. DISCHARGE INSTRUCTIONS: She should follow up with her primary care provider, Dr. Cavanaugh, within a few days of discharge and with her primary watch and clock maker and repairer, Dr. May, within a week or 2 of discharge. /[id number]/MODL MTDD
== END 2017-01-04 12:30 | disposition home health service (06) | DRG 202 ==
LOC: INTOOBSV 15:17 → OBSVTOIN 15:17 → F2W 16:25 → OBSVTOIN 12-31 14:54
PROVIDERS: ADMIT Family Medicine; ATTEND Family Medicine
DX: J45.901 Unspecified asthma with (acute) exacerbation (principal); R06.00 Dyspnea, unspecified; R09.02 Hypoxemia; J06.9 Acute upper respiratory infection, unspecified; B97.89 Other viral agents as the cause of diseases classified elsewhere; I27.2 Other secondary pulmonary hypertension; I50.32 Chronic diastolic (congestive) heart failure; N17.9 Acute kidney failure, unspecified; G47.33 Obstructive sleep apnea (adult) (pediatric); I25.10 Atherosclerotic heart disease of native coronary artery without angina pectoris; Z95.1 Presence of aortocoronary bypass graft; Z95.5 Presence of coronary angioplasty implant and graft; I10 Essential (primary) hypertension; E78.5 Hyperlipidemia, unspecified; E66.09 Other obesity due to excess calories; Z68.41 Body mass index [BMI] 40.0-44.9, adult; M79.7 Fibromyalgia
CPT/HCPCS: 97116-GP; 97161-GP; 97530-GP; G8978-GP-CJ; G8979-GP-CI; G8980-GP-CI; J1650; J1940

== ENCOUNTER → 2017-03-16 | Outpatient (CLI) | payer OTHER | LOC: FLAB 14:19 | PROVIDERS: ATTEND Physician Assistant | DX: R60.9 Edema, unspecified (principal); I51.7 Cardiomegaly; Z95.1 Presence of aortocoronary bypass graft | CPT/HCPCS: 82607-90 ==

== ENCOUNTER 2018-11-30 08:41 | Day surgery (SDC) | payer OTHER ==
[2018-11-30] MEDS ORDERED: LIDOCAINE 1% 5 ML SDV SC ONE (08:42)
--- NOTE | 2018-11-30 09:37 | PDGENHP ---
History & Physical Chief Complaint: Recent transient alteration in level of consciousness suspicious for TIA. History of Present Illness: Admitted August 30 with an episode of transient alteration of level of consciousness. History thought to be consistent with TIA. Thus far, non invasive monitoring and diagnostic testing has not revealed any etiology for this event. Pertinent Past, Social, Family History: Coronary artery disease with previous bypass surgery. Hypertension. Obstructive sleep apnea. Glucose intolerance. Relevant Physical Exam: Regular rate and rhythm, no murmurs gallops or rubs, clear lungs. Cardiorespiratory Assessment: Stable for device implantation.
--- NOTE | 2018-11-30 10:54 | CPIP ---
[f rep st] INVASIVE CARDIAC PROCEDURE DATE OF PROCEDURE: 11/30/2018 INDICATIONS: Ms. Rodriguez is 83 years old. She has a history of coronary artery disease and hyperte nsion. She has suffered a recent transient ischemic event. Noninvasive workup and short-term monito ring have been unrevealing regarding the etiology for her recent TIA. She is referred for implantati on of a subcutaneous monitor in light of her TIA. PROCEDURE: Implantation of a [employer] Confirm. TECHNIQUE: Following informed consent, in the fasting state the patient was brought to the CVC. Her left chest was prepped and draped in the usual sterile fashion. The 4th intercostal space was ident ified by landmarks. This was infiltrated with 2% lidocaine with epinephrine. Using the #15 blade, a 1 cm incision was made. The [place] Confirm was then injected underneath the skin and the wound closed with 2 ymra. Manual pressure and a dry dressing were applied. COMPLICATIONS: None DEVICE INFORMATION: The device is a [employer] Confirm. Reference number [id number], serial number [id number]. DISPOSITION: The patient will be recovered in the CVC and discharged home later today. /[id number]/MODL
== END 2018-11-30 10:21 | disposition home or self-care (01) ==
LOC: FCATH 08:41
PROVIDERS: ATTEND Internal Medicine Cardiovascular Disease
PROC: 0JH632Z Insertion of Monitoring Device into Chest Subcutaneous Tissue and Fascia, Percutaneous Approach (ICD-10-PCS; principal; 2018-11-30)
DX: G45.9 Transient cerebral ischemic attack, unspecified (principal); I25.10 Atherosclerotic heart disease of native coronary artery without angina pectoris; Z95.1 Presence of aortocoronary bypass graft; I10 Essential (primary) hypertension; G47.33 Obstructive sleep apnea (adult) (pediatric)
CPT/HCPCS: C1764